=== PATIENT | female | born 1955 | race Caucasian/White ===

== ENCOUNTER 2016-09-29 12:56 | Inpatient (IN) | payer OTHER, MEDICAID ==
[~2016-09-29] VITALS: Ht 165.1 cm; Wt 64.6 kg
--- NOTE | 2016-09-29 13:08 | NUR ---
TO T2B VIA OWN W/C FOR BEDSIDE TRIAGE.
--- NOTE | 2016-09-29 13:15 | NUR ---
MSE BY DR. KRAUSE.
--- NOTE | 2016-09-29 13:20 | NUR ---
PT BIB SON FOR C/O ALOC THAT STARTED THIS MORNING, PT SON STS PT WAS RECENTLY DIAGNOSED WITH UTI ON FRIDAY, STS WENT IN TO SEE MD FOR ABD PAIN WAS GIVEN A URINE SAMPLE WITH POSITIVE BLOOD AND POSITIVE WBC, PT SON STS SHE STARTED ON PRESCRIBED CIPRO ABX YESTERDAY, CONTAINER FOR CIPRO APPEARS TO BE EMPTY BUT PT SON STS HE MADE SURE THE PILLS THAT WERE SPILLED ARE THE SAME AMOUNT OF PILLS THAT SHOULD BE LEFTOVER THAT HAVE NOT BEEN TAKEN YET, STS PT HAS BEEN TAKING PRESCRIBED DOSE WITHOUT MORE OR LESS THAN PRESCRIBED, PT SON STS PT WAS ACTING NORMAL YESTERDAY AND THIS MORNING PT WAS ABLE TO EAT A MUFFIN/BREAKFAST BUT REPORTS AFTERWARDS PT "NOT ACTING LIKE HERSELF" UPON ARRIVAL PT STATING FIRST AND LAST NAME AND SAYING "HOSPITAL" IN HER PRIMARY LANGUAGE FRISIAN WHEN ASKED WHERE PT IS AT, PT UNABLE TO VERBALIZE FURTHER WHAT SHE IS FEELING AND UNABLE TO STAY STILL, PT AWAKE AND ALERT BUT RESTLESS, PER PT SON SHE HAD AN EPISODE SIMILAR TO THIS 3 YEARS AGO DUE TO HX OF UTI BUT ALSO DURING A TIME SHE HAD [place] "TOOK TOO MANY DUE TO THE PAIN FROM HER BLADDER INFECTION" PT CHANGE TO GOWN AND HOOKED ON FULL MONITORS, RESP EVEN AND UNLABORED, SIDE RAILS UPX2, CALL LIGHT WITHIN REACH, INST PTS SON TO PRESS CALL LIGHT FOR ANY ASSISTANCE NEEDED, WILL CONTINUE TO MONITOR
[2016-09-29 14:08] LABS: BASOPHIL % 0.3 % (0-2); PLATELET COUNT 203 x10^3mcL (130-400); RED CELL DISTRIBUTION WIDTH 13.6 % (11.5-14.5)
--- NOTE | 2016-09-29 14:08 | NUR ---
PT UNABLE TO SIT STILL AND VERY RESTLESS WITH PTS SON ATTEMPTING TO HOLD DOWN PT, ATTEMPTED MULTIPLE WAYS TO HELP RELAX PT WITH NO RELIEF, DR. KRAUSE MADE AWARE, PT MEDICATED PER MD ORDER, PLEASE SEE EMAR, SON AT BEDSIDE, PORTABLE RADIOLOGY AT BEDSIDE AT THIS TIME, PT O2 SAT 97%
--- NOTE | 2016-09-29 14:14 | NUR ---
RT AT BEDSIDE FOR ORDERED ABG'S
[2016-09-29 15:03] LABS: CALCIUM 8.3 mg/dL (8.5-10.1); CARBON DIOXIDE 22.1 mmol/L (21-32); CHLORIDE SERUM 110 mmol/L (98-107); CREATININE SERUM 0.8 mg/dL (0.6-1.0); GFR1 > 60 mL/min; GLUCOSE SERUM 102 mg/dL (74-106); POTASSIUM SERUM 3.7 mmol/L (3.5-5.1); SODIUM SERUM 142 mmol/L (136-145)
[2016-09-29 15:08] LABS: ALKALINE PHOSPHATASE 89 U/L (46-116); ALT/SGPT 17 U/L (14-59); AMYLASE 25 U/L (25-115); AST/SGOT 28 U/L (15-37); BILIRUBIN TOTAL 0.42 mg/dL (0.20-1.00); CHOLESTEROL 132 mg/dL (<200); HDL CHOLESTEROL 46 mg/dL (40-60); LIPASE 55 IU/L (73-393); MAGNESIUM 1.9 mg/dL (1.8-2.4); T4(THYROXINE) 10.3 ug/dL (4.7-13.3); TOTAL PROTEIN, SERUM 6.6 g/dL (6.4-8.2)
[2016-09-29 15:23] LABS: microscopic required? YES; urine erythrocyte 1+ (NEGATIVE)
--- NOTE | 2016-09-29 15:26 | NUR ---
SEPSIS CHECKLIST INITIATED, PT MEETS ALL 3 QUESTIONS. AWARE. SEE ORDERS.
[2016-09-29 15:37] LABS: AMPHETAMINE QUAL UR NONE DETECTED (NEG <=1000)
--- NOTE | 2016-09-29 16:04 | NUR ---
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
--- NOTE | 2016-09-29 16:05 | NUR ---
PT CONSISTENTLY ATTEMPTING TO GET OUT OF BED, PT TWO SONS AT BEDSIDE CONTINUOUSLY ATTEMPTING TO HAVE PT STAY STILL IN BED, REORIENTATION AND COMFORT MEASURES IMPLEMENTED WITH NO SUCCESS, PT CONTINUOUSLY PULLING OUT CARDIAC LEADS, PT SON AT BEDSIDE ASKING "IS THERE ANOTHER WAY TO KEEP HER STILL IN BED?" AFTER MULTIPLE ATTEMPTS TO HELP PT CALM AND STILL OKAY BY PT SONS AT BEDSIDE AND BY DR. KRAUSE FOR SOFT RESTRAINTS AT THIS TIME, PLEASE SEE PAPER CHARTING FOR FURTHER NOTES
[2016-09-29] MEDS ORDERED: ZESTRIL5 MG PO (16:10)
[2016-09-29] MEDS ORDERED: CIP500 PO (16:11)
--- NOTE | 2016-09-29 16:53 | NUR ---
DR. KRAUSE AT BEDSIDE FOR RE-EVAL OF PT, PER GUITAR INSTRUCTOR, STILL NOT ABLE TO TAKE PT DUE TO PT STILL MOVING AROUND AFTER POSITION CLASSIFICATION MANAGER, DR. KRAUSE MADE AWARE
--- NOTE | 2016-09-29 17:08 | NUR ---
PT MEDICATED PER MD ORDER, PLEASE SEE EMAR, PT TOLERATED WELL, SON AT BEDSIDE, LIGHT DIMMED, CALL LIGHT WITHIN REACH, WILL CONTINUE TO MONITOR
--- NOTE | 2016-09-29 17:24 | NUR ---
PT TAKEN TO CT VIA [facility] IN A STABLE CONDITION AT THIS TIME
--- NOTE | 2016-09-29 17:48 | NUR ---
PT BACK TO TREATMENT AREA WITH NO INCIDENCE, PLACED ON FULL MONITORS, RESP EVEN AND UNLABORED, IN NO ACUTE DISTRESS, SON AT BEDSIDE, WILL CONTINUE TO MONITOR
--- NOTE | 2016-09-29 18:11 | NUR ---
TUSHAR PROVIDED FOR COMFORT, MRSA SWAB COLLECTED AND SENT TO LAB
--- NOTE | 2016-09-29 19:01 | NUR ---
PT FOREHEAD FELT WARM TO TOUCH IN COMPARISON TO EARLIER ASSESSMENT WHICH WAS WNL, PT WAS AFEBRILE WITH ORAL TEMP OF 97.6, PT RECTAL TEMP CHECKED WITH 100.6 AT THIS TIME, DR. KRAUSE MADE AWARE
[2016-09-29 19:58] LABS: CHOLESTEROL/HDL RATIO 2.9; PHOSPHOROUS 4.2 mg/dL (2.5-4.9)
--- NOTE | 2016-09-29 20:06 | NUR ---
PATIENT RESTING IN BED, SON AT THE BEDSIDE. PT IS AGITATED, UNABLE TO FOLLOW SIMPLE COMMANDS. PT IS MOANING WITH OCCASIONAL INCOHERRANT WORDS. WILL CONTINUE TO MONITOR.
--- NOTE | 2016-09-29 20:40 | NUR ---
RECD PT FROM ER VIA [facility]. PT ACCOMPANIED BY SON. PT IS CONFUSED, UNABLE TO FOLLOW COMMANDS, AND RESTLESS. TELE #8, SINUS TACH, HR 121. LUNG SOUNDS CLEAR, NO SOB NOTED. IV TO RIGHT FOREARM, INTACT AND PATENT. BED IN LOWEST POSITION, CALL LIGHT WITHIN REACH. WILL ENDORSE TO PRIMARY RN.
[2016-09-29 20:52] VITALS: BP 158/91
--- NOTE | 2016-09-29 21:09 | NUR ---
PT. RESTLESS AND MOVING AROUND ALOTIN BED. SON AT BEDSIDE. PRN ATIVAN 2MG OVP GIVEN. PT. PLACED ON 2L/NC. HOB 30 DEGREE.
--- NOTE | 2016-09-29 23:12 | NUR ---
PT. RESTED QUIETLY FOR ALMOST 2HRS, SINCE PRN ATIVAN. PT. NOW EXHIBITING SIGNS OF RESTLESSNESS. MOVING AROUND IN BED PT. NOT PULLING ON IOV SITE HOWEVER. BED REMAINS LOW LAYING W/ ALARM ON. FREQUENT ROUNDING PLANNED.
--- NOTE | 2016-09-30 02:58 | NUR ---
PT. AWAKE, RESTLESS, PULLING HER GOWN OFF AND REMOVING HER NASAL CANNULA. PRN ATIVAN IV GIVEN ORDERED. HOB REMAINS AT 30 DEGREES. BED LOW LAYING WITH ALARM ON. WILL CONTINUE TO MONITOR PT.
--- NOTE | 2016-09-30 05:51 | NUR ---
PT. AWAKE, STILL REMAINS RESTLESS. NOT PULLING ON IV TUBING OR TELE LINE. PT. SPEECH GARBLED. NOT FOLLOWING COMMANDS. BED LOW LAYING WITH ALARM ON. WILL ENDORSE PT. CARE TO INCOMING NURSE.
[2016-09-30 06:43] LABS: BASOPHIL % 0.3 % (0-2); PLATELET COUNT 197 x10^3mcL (130-400); RED CELL DISTRIBUTION WIDTH 13.6 % (11.5-14.5)
--- NOTE | 2016-09-30 07:00 | NUR ---
PT WAS ENDORSE TO ME THIS MORNING. PT CONFUSE AND VERY RESTLESS WITH A 1:1. IV TO THE RFA, NS INFUSING 150 ML/HR. NO REDNESS OR SWELLING NOTED. PT ON TELE 8 SR/ST HR 105. LUNGS ARE CLEAR ON 2L N/C. PT SON BY HER SIDE. CALL LIGHT IN REACH, SIDE RAILS UP BY NURSES STATION. WILL CONTINUE TO MONITOR PLAN OF CARE.
[2016-09-30 07:05] LABS: CALCIUM 8.4 mg/dL (8.5-10.1); CARBON DIOXIDE 18.9 mmol/L (21-32); CHLORIDE SERUM 110 mmol/L (98-107); CREATININE SERUM 0.7 mg/dL (0.6-1.0); GFR1 > 60 mL/min; GLUCOSE SERUM 101 mg/dL (74-106); MAGNESIUM 1.8 mg/dL (1.8-2.4); PHOSPHOROUS 3.3 mg/dL (2.5-4.9); POTASSIUM SERUM 3.5 mmol/L (3.5-5.1); SODIUM SERUM 142 mmol/L (136-145)
[2016-09-30 11:00] VITALS: BP 123/71
--- NOTE | 2016-09-30 12:30 | NUR ---
PT IS SLEEPING VERY COMFORTABLE. NO RESTLESSNESS NOTED. BREATHING EVEN AND UNLABORED. ON 2L N/C NO SOB NOTED. PT SONS BY HER SIDE. WILL CONTINUE PLAN OF CARE AND CONTINUE TO MONITOR HER RESTLESSNESS.
[2016-09-30] MEDS ORDERED: PROPRANOLOL HYD60 MG PO (13:21)
[2016-09-30] MEDS ORDERED: CITALOPRAM HYDR20 M1 PO (13:22)
[2016-09-30] MEDS ORDERED: SYNTHROID0.112 MG PO (13:23)
[2016-09-30] MEDS ORDERED: SKE400 PO (13:23)
[2016-09-30] MEDS ORDERED: PROPRANOLOL HCL10 MG PO (13:24)
--- NOTE | 2016-09-30 14:02 | NUR ---
CHANGED PT IV DUE REDNESS AND SWELLING. IV IS NOW ON LHAND. 22G. PATENT AND INFUSING NS AT 150ML/HR.
[2016-09-30 15:03] VITALS: BP 133/94
[2016-09-30 18:02] VITALS: BP 160/106
--- NOTE | 2016-09-30 19:00 | NUR ---
PT IS SLEEPING VERY COMFORTABLE. NO RESTLESSNESS NOTED. PT IS BREATHING EVEN AND UNLABORED, NO SOB NOTED. CALL LIGHT IN REACH. BED IN LOW POSITION. BED ALARM ON AND BY NURSE STATION. WILL ENDORSE PT TO INCOMING NURSE.
--- NOTE | 2016-09-30 19:47 | NUR ---
RECEIVED PT FROM PREVIOUS SHIFT NURSE. PT AXO1. TELE #8, ST, HR 118. PULSES PRESENT, NO EDEMA NOTED. LUNG SOUNDS CLEAR, ON RA. NO RESP. DISTRESS NOTED. BOWEL SOUNDS ACTIVE. VOIDS FREELY, INCONTINENT. GENERALIZED WEAKNESS. BED BOUND. SKIN INTACT. IV IN L. HAND, INTACT AND PATENT. BED IN LOWEST POSITION. CALL LIGHT WITHIN REACH. WILL CONTINUE TO MONITOR.
[2016-09-30 21:00] VITALS: BP 150/108
--- NOTE | 2016-09-30 21:45 | NUR ---
PT REPORTS ABD PAIN. DENIES PAIN WHEN PRESSURE APPLIED, BOWEL SOUNDS ACTIVE. BP 150/108 MAP 129. MEDICATED PER EMAR. DR. SANCHES NOTIFIED.
--- NOTE | 2016-10-01 01:16 | NUR ---
PT RESTING IN BED. RR EVEN AND UNLABORED. NO ACUTE DISTRESS NOTED. BED IN LOWEST POSITION. CALL LIGHT WITHIN REACH. WILL CONTINUE TO MONITOR.
[2016-10-01 05:36] VITALS: BP 143/90
[2016-10-01 06:27] LABS: CALCIUM 8.4 mg/dL (8.5-10.1); CHLORIDE SERUM 112 mmol/L (98-107); CREATININE SERUM 0.7 mg/dL (0.6-1.0); GFR1 > 60 mL/min; GLUCOSE SERUM 75 mg/dL (74-106); POTASSIUM SERUM 3.1 mmol/L (3.5-5.1); SODIUM SERUM 144 mmol/L (136-145)
[2016-10-01 06:52] LABS: BASOPHIL % 1.1 % (0-2); PLATELET COUNT 182 x10^3mcL (130-400); RED CELL DISTRIBUTION WIDTH 12.8 % (11.5-14.5)
--- NOTE | 2016-10-01 07:15 | NUR ---
PT WAS ENDORSE TO ME THIS MORNING . PT IS SLEEPING VERY COMFORTABLE, BREATHING EVEN AND UNLABORED. ON TELE 8. LUNGS CLEAR. IV TO THE L HAND INFUSING AT 150ML/HR, NO REDNESS OR SWELLING NOTED. PT IS CALM AT THIS TIME. WILL CONTINUE TO MONITOR PT AND RESTLESSNESS.
--- NOTE | 2016-10-01 10:00 | NUR ---
PT IS GOING TO BE TAKEN FOR CT OF THE HEAD. PER DOCTORS ORDERS GAVE PT ATIVAN FOR RESTLESSNESS.
[2016-10-01 12:34] VITALS: BP 177/95
[2016-10-01 15:16] VITALS: BP 187/110
--- NOTE | 2016-10-01 15:30 | NUR ---
PT BP 187/110. MAP 136. MADE DOCTOR BRIE AWARE.
--- NOTE | 2016-10-01 19:00 | NUR ---
PT IS RESTING IN BED WITH FAMILY BY HER SIDE. PT IS CALM AND NO RESTLESSNESS AT THIS TIME. PT BREATHING EVEN AND UNLABORED ON 2L NC FOR COMFORT. CALL LIGHT IN REACH. BED IN LOW POSITION. WILL ENDORSE PT TO INCOMING NURSE.
--- NOTE | 2016-10-01 19:49 | NUR ---
RECEIVED PT FROM PREVIOUS SHIFT NURSE. PT AOX1, RESTLESS AND CONFUSED. TELE #8, ST, HR 113. PULSES PRESENT, NO EDEMA NOTED. LUNG SOUNDS CLEAR, ON RA. NO SOB/ DISSTRESS NOTED. BOWEL SOUNDS ACTIVE. PT INCONTINENT. GENERALIZED WEAKNESS. NON AMBULATORY. SKIN INTACT. IV IN L. HAND, INTACT AND PATENT. BED IN LOWEST POSITION. CALL LIGHT WITHIN REACH. WILL CONTINUE TO MONITOR.
[2016-10-01 21:01] VITALS: BP 174/102
--- NOTE | 2016-10-02 01:09 | NUR ---
PT RESTING IN BED. RR EVEN AND UNLABORED. NO ACUTE DISTRESS NOTED. BED IN LOWEST POSITION. CALL LIGHT WITHIN REACH. WILL CONTINUE TO MONITOR.
[2016-10-02 05:34] VITALS: BP 177/111
[2016-10-02 06:15] LABS: CALCIUM 8.5 mg/dL (8.5-10.1); CARBON DIOXIDE 21.3 mmol/L (21-32); CHLORIDE SERUM 112 mmol/L (98-107); CREATININE SERUM 0.7 mg/dL (0.6-1.0); GFR1 > 60 mL/min; GLUCOSE SERUM 75 mg/dL (74-106); SODIUM SERUM 147 mmol/L (136-145)
[2016-10-02 06:22] LABS: POTASSIUM SERUM 2.9 mmol/L (3.5-5.1)
[2016-10-02 08:28] VITALS: BP 192/119
--- NOTE | 2016-10-02 10:30 | NUR ---
BP:192/119 (143) ADMINISTERED MORNING BP MEDS. POST ASSESSMENT: 174/[address] BAIRD. AWATING ORDERS.
--- NOTE | 2016-10-02 11:05 | NUR ---
BP: 142/93 (109) HR:86 RR:16 POST LABETALOL ADMINISTRATION. WILL CONTINUE TO MONITOR.
--- NOTE | 2016-10-02 11:40 | NUR ---
SWALLOW EVAL IN PROGRESS. PT TOLERATING PROCEDURE FAIRLY. SON AT BEDSIDE.
--- NOTE | 2016-10-02 12:13 | NUR ---
COAT MAKER note (bedside swallow evaluation completed) [id number]. Bedside swallow evaluation completed, please see report for details. COAT MAKER provided pt and pt's son (Isaac, at bedside) with education regarding purpose of evaluation and rationale for recommendations. Pt's son verbalized understanding and agreement at this time. Pt's son initially upset upon COAT MAKER's entrance to pt's room. COAT MAKER provided pt's son with supportive listening and encouragement with good result. Recommend: 1) regular textures 2) thin liquids 3) feeding supervision/assistance 4) strict aspiration precautions (including pt must be FULLY awake/alert/upright for any PO intakes, alternate small/slow bites and sips, stop giving PO if pt becomes less alert/sleepy/SOB/coughing) 5) no further COAT MAKER intervention indicated at this time. Physician may reorder if further concerns arise, as appropriate. G-codes: [id number] MICHELLE NOMS level 5 PVE for d/w RN (Camden) prior to and following bedside swallow evaluation completion. COAT MAKER posted safe swallow strategies sign above pt's HOB and reviewed same with pt's son (Isaac) and RN (Camden) - both at bedside.
[2016-10-02 13:45] VITALS: BP 142/93
[2016-10-02 16:15] VITALS: BP 139/95
[2016-10-02 16:55] VITALS: BP 139/95
--- NOTE | 2016-10-02 17:05 | NUR ---
BP:139/95 HR:81 RR:16 95% ON RA. AGITATION NOTED. PT WANTING TO GET OUT OF BED. PT AMBULATED TO RESTROOM WITH MAX ASSIST. PT PASSED STOOL. PROVIDED HYGIENE TO PT. PT ASSITED BACK TO BED. PT SHOWS RELIEF. TOLERATED ACTIVITY FAIRLY. SITTER AT BEDSIDE.
--- NOTE | 2016-10-02 18:05 | NUR ---
PT ORIENTED TO SELF, PLACE, . PT REQUESTED BEDPAN- PASSED STOOL. NO DISTRESS NOTED, EFFORTLESS BREATHING ON ROOM AIR. CALL LIGHT WITHIN REACH.
--- NOTE | 2016-10-02 20:00 | NUR ---
SHIFT ASSESSMENT DONE, PT A LITTLE DROWSY ANSWERS BASIC QUESTION, DENIES HEADACHE OR DIZZINESS, NOT IN ANY DISTRESS LUNGS CTA, SATURATING 97% RA, BP 126/80, HR 97, TELE #8 INPLACED SR IN THE MONITOR NO CP OR PRESSURE, AFEBRILE TEMP 98.3, RR 18, IVF NS INFUSING @ 75CC/HR IV ACCESS @ LT HAND PATENT NON INFIL, SCD'S FOR DVT PROPHYLAXIS, CLOSELY MONITORED, BED ALARM ON, CONT TO MONITOR.
[2016-10-02 23:59] VITALS: BP 126/80
--- NOTE | 2016-10-03 02:00 | NUR ---
AWAKE RESTLESS TRIED TO GET OOB VERBAL UNCOMPREHENSIVE @ TIMES, DENIES PAIN NO DISTRESS IVF INFUSING WELL, SR IN THE MONITOR, BP STABLE AT THIS TIME, SR IN THE MONITOR NO CP OR PRESSURE, SITTER AT BEDSIDE.
[2016-10-03 05:55] VITALS: BP 152/65
[2016-10-03 06:04] LABS: BASOPHIL % 0.3 % (0-2); PLATELET COUNT 200 x10^3mcL (130-400)
[2016-10-03 06:13] LABS: CALCIUM 8.5 mg/dL (8.5-10.1); CARBON DIOXIDE 24.1 mmol/L (21-32); CHLORIDE SERUM 111 mmol/L (98-107); CREATININE SERUM 0.8 mg/dL (0.6-1.0); GFR1 > 60 mL/min; GLUCOSE SERUM 93 mg/dL (74-106); POTASSIUM SERUM 3.1 mmol/L (3.5-5.1); SODIUM SERUM 147 mmol/L (136-145)
[2016-10-03 06:32] VITALS: BP 152/95
--- NOTE | 2016-10-03 06:43 | NUR ---
AM CARE RENDERED, PT DENIES PAIN, RESTLESS AT TIMES, BM X2 GOOD PERICARE PROVIDED, SLEPT INTERMITTENT DURING THE SHIFT, SITTER AT BEDSIDE, CONT TO MONITOR.
--- NOTE | 2016-10-03 08:45 | NUR ---
PASSED MORNING MEDS. PT TOLERATED WELL. CALM AND COOPERATIVE OF CARE. WILL CONTINUE TO MONITOR.
--- NOTE | 2016-10-03 10:50 | NUR ---
PT AGITATED, HEP LOCKED PT. REMOVED TELE BOX. PT IS TRANFERRED TO BEDSIDE CHAIR. PT IS SCREAMING. WILL CONTINUE TO MONITOR.
[2016-10-03] MEDS ORDERED: NOR5 PO (10:58)
[2016-10-03] MEDS ORDERED: ZES20 PO (11:23)
--- NOTE | 2016-10-03 11:30 | NUR ---
PT REMAINS IN BEDSIDE CHAIR. NO DISTRESS NOTED. PT'S SONS ARRIVED AND PT ACTIVITY LEVEL DECRAESED. PT IS CALM AND IS VOICING DESIRE TO GO HOME. SONS AGREE TO TAKE HER UPON DISCHARGE.
[2016-10-03 11:41] VITALS: BP 118/80
--- NOTE | 2016-10-03 12:10 | NUR ---
DISCHARGE INSTRUCTIONS GIVEN TO SONS. SONS VERBALIZED UNDERSTANDING FOR FOLLOW UP APPOINTMENT AND PRESCRIPTION ORDERS. IV DC'D CATHETER INTACT, TELE BOX REMOVED. PT ESCORTED OUT OF UNIT SAFELY.
== END 2016-10-03 12:16 | disposition home or self-care (01) | DRG 871 ==
LOC: ED 12:56 → DU 17:59
PROVIDERS: Emergency Medicine; Family Medicine; ADMIT Family Medicine
DX: A41.9 Sepsis, unspecified organism (principal); N17.0 Acute kidney failure with tubular necrosis; G93.41 Metabolic encephalopathy; N39.0 Urinary tract infection, site not specified; E44.1 Mild protein-calorie malnutrition; E87.2 Acidosis; G11.1 Early-onset cerebellar ataxia; R65.20 Severe sepsis without septic shock; I16.0 Hypertensive urgency; E86.0 Dehydration; Z68.23 Body mass index [BMI] 23.0-23.9, adult
CPT/HCPCS: 36600; 82962; 83880; 92610; G0480; J0360; J0696; J1200; J1630; J1940; J1956; J2060; J2270; J3480; J3490; J7030